=== PATIENT | male | born 1950 | race Caucasian/White ===

== ENCOUNTER 2017-10-27 15:42 | Emergency (ER) | payer OTHER ==
[~2017-10-27] VITALS: Ht 180.3 cm; Wt 103.0 kg
[~2017-10-27 15:42] MED LIST: ACETYLSALICYLIC1 POW; ALD25 PO; ALLOPURINOL100 MG PO; CARVEDILOL3.125 M1 PO; CLINDAMYCIN HC300 MG PO; COR3 PO; COR6 PO; DIAZEPAM10 MG PO; DIGOXIN; ECO81 PO; FLA500 PO; GLU500 PO; HALDOL1 MG; HALOPERIDOL10 MG PO; L20; L40 PO; LAC PO; LASIX40 MG PO; LEVAQUIN750 MG PO; LOT10 PO; METFORMIN HCL500 MG PO; NEU300 PO; POTASSIUM20 MEQ; PULMICORT180 MCG/Ac INH; RISPERDAL1 MG PO; TRAMADOL HCL50 MG PO; VAL10 PO; VAL5; VENTOLIN H0.09 MG/A1 INH; ZES5 PO; ZOC20 PO
[2017-10-27 15:47] VITALS: Ht 180.3 cm; Wt 103.0 kg
[2017-10-27 17:37] VITALS: BP 130/86
== END 2017-10-27 17:37 | disposition home or self-care (01) ==
LOC: ED 15:42
DX: J44.9 Chronic obstructive pulmonary disease, unspecified (principal); J09.X2 Influenza due to identified novel influenza A virus with other respiratory manifestations; J43.9 Emphysema, unspecified
CPT/HCPCS: J7512; J7613; J7644

== ENCOUNTER 2017-10-31 09:26 | Emergency (ER) | payer OTHER ==
[~2017-10-31] VITALS: Ht 180.3 cm; Wt 103.4 kg
[2017-10-31 09:36] VITALS: Ht 180.3 cm; Wt 103.4 kg
[2017-10-31 12:05] VITALS: BP 139/79
== END 2017-10-31 12:05 | disposition home or self-care (01) ==
LOC: ED 09:26
DX: J44.1 Chronic obstructive pulmonary disease with (acute) exacerbation (principal); I11.0 Hypertensive heart disease with heart failure; I50.9 Heart failure, unspecified; E11.9 Type 2 diabetes mellitus without complications
CPT/HCPCS: J7512; J7644

== ENCOUNTER 2017-11-07 07:52 | Inpatient (IN) | payer OTHER ==
[~2017-11-07] VITALS: Ht 180.3 cm; Wt 101.6 kg
[2017-11-07 07:58] VITALS: Ht 180.3 cm; Wt 101.6 kg
[2017-11-07 10:45] LABS: CALCIUM 8.8 mg/dL (8.5-10.1); CARBON DIOXIDE 26.5 mmol/L (21-32); CHLORIDE SERUM 103 mmol/L (98-107); GFR1 > 60 mL/min; GLUCOSE SERUM 311 mg/dL (74-106); POTASSIUM SERUM 4.1 mmol/L (3.5-5.1); SODIUM SERUM 139 mmol/L (136-145)
[2017-11-07 10:50] LABS: ALKALINE PHOSPHATASE 95 U/L (46-116); ALT/SGPT 30 U/L (16-63); AST/SGOT 23 U/L (15-37); BILIRUBIN TOTAL 0.7 mg/dL (0.20-1.00)
[2017-11-07 10:51] LABS: ALBUMIN 3.3 g/dL (3.4-5.0)
[2017-11-07 11:00] LABS: BASOPHIL % 0.9 % (0-2); PLATELET COUNT 255 x10^3mcL (130-400)
[2017-11-07 11:04] LABS: RED CELL DISTRIBUTION WIDTH 14.8 % (11.5-14.5)
[2017-11-07 12:04] LABS: CHOLESTEROL/HDL RATIO 2.5; MAGNESIUM 1.8 mg/dL (1.8-2.4); PHOSPHOROUS 2.7 mg/dL (2.5-4.9)
[2017-11-07 12:06] LABS: UA SPECIFIC GRAVITY >=1.030 (1.005-1.035); microscopic required? YES; urine erythrocyte TRACE (NEGATIVE)
[2017-11-07 12:22] LABS: AMPHETAMINE QUAL UR NONE DETECTED (NEG <=1000)
[2017-11-07 12:24] LABS: FREE T4 1.46 ng/dL (0.76-1.46); T4(THYROXINE) 9.3 ug/dL (4.7-13.3)
[2017-11-07 12:59] VITALS: BP 134/90
[2017-11-07 15:02] VITALS: BP 134/90
[2017-11-07 18:16] VITALS: BP 132/82
[2017-11-07 20:53] VITALS: BP 132/85
[2017-11-07 21:36] VITALS: BP 108/75
[2017-11-08 04:51] VITALS: BP 114/80
[2017-11-08 07:22] LABS: BASOPHIL % 0.3 % (0-2); PLATELET COUNT 231 x10^3mcL (130-400)
[2017-11-08 07:24] LABS: RED CELL DISTRIBUTION WIDTH 14.8 % (11.5-14.5)
[2017-11-08 07:26] LABS: CALCIUM 8.5 mg/dL (8.5-10.1); CARBON DIOXIDE 25.8 mmol/L (21-32); CHLORIDE SERUM 104 mmol/L (98-107); CREATININE SERUM 1.1 mg/dL (0.7-1.3); GFR1 > 60 mL/min; GLUCOSE SERUM 89 mg/dL (74-106); MAGNESIUM 1.8 mg/dL (1.8-2.4); PHOSPHOROUS 3.6 mg/dL (2.5-4.9); POTASSIUM SERUM 3.9 mmol/L (3.5-5.1); SODIUM SERUM 142 mmol/L (136-145)
[2017-11-08 11:22] VITALS: BP 129/83
[2017-11-08 14:25] VITALS: BP 116/70
[2017-11-08 17:33] VITALS: BP 113/75
[2017-11-08 20:52] VITALS: BP 121/77
[2017-11-08 21:25] VITALS: BP 125/73
[2017-11-09 04:39] VITALS: BP 111/72
[2017-11-09 07:58] LABS: BASOPHIL % 0.7 % (0-2); PLATELET COUNT 213 x10^3mcL (130-400); RED CELL DISTRIBUTION WIDTH 14.4 % (11.5-14.5)
[2017-11-09 08:03] LABS: CARBON DIOXIDE 26.9 mmol/L (21-32); CHLORIDE SERUM 102 mmol/L (98-107); CREATININE SERUM 1.2 mg/dL (0.7-1.3); GFR1 > 60 mL/min; GLUCOSE SERUM 148 mg/dL (74-106); MAGNESIUM 1.8 mg/dL (1.8-2.4); PHOSPHOROUS 4.1 mg/dL (2.5-4.9); POTASSIUM SERUM 3.8 mmol/L (3.5-5.1); SODIUM SERUM 137 mmol/L (136-145)
[2017-11-09 09:17] VITALS: BP 113/62
[2017-11-09] MEDS ORDERED: LEVAQUIN750 MG PO (12:13)
[2017-11-09] MEDS ORDERED: LAC PO (12:13)
[2017-11-09] MEDS ORDERED: ZES5 PO (12:14)
[2017-11-09 12:50] VITALS: BP 115/77
[2017-11-09 13:30] VITALS: BP 113/62
== END 2017-11-09 15:48 | disposition home or self-care (01) | DRG 190 ==
LOC: ED 07:52 → DU 11:13
PROVIDERS: Emergency Medicine; Family Medicine
DX: J44.1 Chronic obstructive pulmonary disease with (acute) exacerbation (principal); N17.0 Acute kidney failure with tubular necrosis; J96.20 Acute and chronic respiratory failure, unspecified whether with hypoxia or hypercapnia; I50.43 Acute on chronic combined systolic (congestive) and diastolic (congestive) heart failure; E44.1 Mild protein-calorie malnutrition; I11.0 Hypertensive heart disease with heart failure; E11.65 Type 2 diabetes mellitus with hyperglycemia; E11.51 Type 2 diabetes mellitus with diabetic peripheral angiopathy without gangrene; R80.9 Proteinuria, unspecified; F20.9 Schizophrenia, unspecified; F17.200 Nicotine dependence, unspecified, uncomplicated; Z68.31 Body mass index [BMI] 31.0-31.9, adult; Z79.84 Long term (current) use of oral hypoglycemic drugs; Z95.810 Presence of automatic (implantable) cardiac defibrillator; Z86.718 Personal history of other venous thrombosis and embolism
CPT/HCPCS: 36600; 82962; 83880; 84439; 94150; J1940; J1956; J7030; J7613; J7620; J7626; J7644; Q0092

== ENCOUNTER 2017-12-11 08:32 | Inpatient (IN) | payer OTHER ==
[~2017-12-11] VITALS: Ht 180.3 cm; Wt 93.5 kg
[2017-12-11 08:35] VITALS: Ht 180.3 cm; Wt 93.5 kg
[2017-12-11] MEDS ORDERED: BENAZEPRIL HYDR20 M1 PO (08:59)
[2017-12-11] MEDS ORDERED: CARVEDILOL3.125 M1 PO (08:59)
[2017-12-11 10:25] LABS: CALCIUM 8.6 mg/dL (8.5-10.1); CARBON DIOXIDE 28.9 mmol/L (21-32); CREATININE SERUM 1.3 mg/dL (0.7-1.3); POTASSIUM SERUM 4.6 mmol/L (3.5-5.1)
[2017-12-11 10:29] LABS: BILIRUBIN TOTAL 0.96 mg/dL (0.20-1.00); CHOLESTEROL/HDL RATIO 3.3; TOTAL PROTEIN, SERUM 6.8 g/dL (6.4-8.2)
[2017-12-11 10:33] LABS: ALBUMIN 2.9 g/dL (3.4-5.0)
[2017-12-11 10:41] LABS: T3 TOTAL 0.76 ng/mL
[2017-12-11 11:17] LABS: BASOPHIL % 0.6 % (0-2); PLATELET COUNT 191 x10^3mcL (130-400); RED CELL DISTRIBUTION WIDTH 14.2 % (11.5-14.5)
[2017-12-11 11:21] LABS: FREE T4 1.43 ng/dL (0.76-1.46); T4(THYROXINE) 7.2 ug/dL (4.7-13.3)
[2017-12-11 13:21] VITALS: BP 123/72
[2017-12-11 16:20] LABS: MAGNESIUM 1.5 mg/dL (1.8-2.4); PHOSPHOROUS 3.3 mg/dL (2.5-4.9)
[2017-12-11 18:07] VITALS: BP 127/79
[2017-12-11 21:46] VITALS: BP 129/83
[2017-12-12 03:37] LABS: BASOPHIL % 0.1 % (0-2); PLATELET COUNT 191 x10^3mcL (130-400); RED CELL DISTRIBUTION WIDTH 13.8 % (11.5-14.5)
[2017-12-12 03:58] LABS: CALCIUM 8.2 mg/dL (8.5-10.1); CARBON DIOXIDE 24.5 mmol/L (21-32); CREATININE SERUM 1.3 mg/dL (0.7-1.3); MAGNESIUM 1.4 mg/dL (1.8-2.4); PHOSPHOROUS 2.9 mg/dL (2.5-4.9); POTASSIUM SERUM 4.5 mmol/L (3.5-5.1)
[2017-12-12 05:59] VITALS: BP 111/81
[2017-12-12 09:23] VITALS: BP 118/83
[2017-12-12 11:33] LABS: UA SPECIFIC GRAVITY 1.025 (1.005-1.035); microscopic required? YES; urine erythrocyte NEGATIVE (NEGATIVE)
[2017-12-12 12:11] LABS: AMPHETAMINE QUAL UR NONE DETECTED (NEG <=1000)
[2017-12-12 13:23] VITALS: BP 114/68
[2017-12-12 17:41] VITALS: BP 125/63
[2017-12-12 20:06] VITALS: BP 101/61
[2017-12-13 05:58] VITALS: BP 100/62
[2017-12-13 07:54] LABS: PLATELET COUNT 187 x10^3mcL (130-400); RED CELL DISTRIBUTION WIDTH 14.3 % (11.5-14.5)
[2017-12-13 08:04] LABS: CALCIUM 8.3 mg/dL (8.5-10.1); CARBON DIOXIDE 22.9 mmol/L (21-32); CREATININE SERUM 1.5 mg/dL (0.7-1.3); MAGNESIUM 1.7 mg/dL (1.8-2.4); PHOSPHOROUS 4.1 mg/dL (2.5-4.9); POTASSIUM SERUM 5.3 mmol/L (3.5-5.1)
[2017-12-13 09:02] LABS: BASOPHIL % 0 % (0-2)
[2017-12-13 09:35] VITALS: BP 112/61
[2017-12-13 13:01] VITALS: BP 117/69
[2017-12-13 17:22] VITALS: BP 105/65
[2017-12-13 19:51] VITALS: BP 107/62
[2017-12-13 21:46] VITALS: BP 118/72
[2017-12-14 06:21] VITALS: BP 99/49
[2017-12-14 06:26] LABS: CALCIUM 8.3 mg/dL (8.5-10.1); CARBON DIOXIDE 28.2 mmol/L (21-32); CREATININE SERUM 1.3 mg/dL (0.7-1.3); POTASSIUM SERUM 3.8 mmol/L (3.5-5.1)
[2017-12-14 06:46] LABS: PLATELET COUNT 233 x10^3mcL (130-400); RED CELL DISTRIBUTION WIDTH 14.1 % (11.5-14.5)
[2017-12-14 06:50] LABS: BASOPHIL % 0 % (0-2)
[2017-12-14 09:13] VITALS: BP 109/59
[2017-12-14] MEDS ORDERED: ECO81 PO (11:18)
[2017-12-14] MEDS ORDERED: LIPI10 PO (12:21)
[2017-12-14 12:45] VITALS: BP 110/60
[2017-12-14] MEDS ORDERED: ALD25 PO (13:40)
[2017-12-14] MEDS ORDERED: LEVAQUIN500 M1 PO (13:43)
[2017-12-14] MEDS ORDERED: CLEOCIN HCL300 MG PO (13:44)
[2017-12-14 15:36] VITALS: BP 110/60
== END 2017-12-14 17:15 | disposition home or self-care (01) | DRG 177 ==
LOC: ED 08:32 → DU 11:30
PROVIDERS: Family Medicine; Specialist
DX: J69.0 Pneumonitis due to inhalation of food and vomit (principal); I50.43 Acute on chronic combined systolic (congestive) and diastolic (congestive) heart failure; G93.41 Metabolic encephalopathy; E43 Unspecified severe protein-calorie malnutrition; N17.0 Acute kidney failure with tubular necrosis; J44.1 Chronic obstructive pulmonary disease with (acute) exacerbation; I42.0 Dilated cardiomyopathy; I11.0 Hypertensive heart disease with heart failure; F03.90 Unspecified dementia, unspecified severity, without behavioral disturbance, psychotic disturbance, mood disturbance, and anxiety; I34.0 Nonrheumatic mitral (valve) insufficiency; E11.65 Type 2 diabetes mellitus with hyperglycemia; E11.51 Type 2 diabetes mellitus with diabetic peripheral angiopathy without gangrene; I25.2 Old myocardial infarction; F20.9 Schizophrenia, unspecified; F12.10 Cannabis abuse, uncomplicated; F17.218 Nicotine dependence, cigarettes, with other nicotine-induced disorders; Z68.28 Body mass index [BMI] 28.0-28.9, adult; Z95.0 Presence of cardiac pacemaker; Z86.73 Personal history of transient ischemic attack (TIA), and cerebral infarction without residual deficits; Z86.718 Personal history of other venous thrombosis and embolism; Z79.84 Long term (current) use of oral hypoglycemic drugs
CPT/HCPCS: 36600; 82962; 83880; 84439; 94150; 97110-GP; 97116-GP; 97530-GP; J1644; J1940; J1956; J2543; J2920; J2930; J3475; J3490; J7030; J7620; Q0092

== ENCOUNTER 2018-02-23 08:56 | Inpatient (IN) | payer OTHER ==
[~2018-02-23] VITALS: Ht 177.8 cm; Wt 92.5 kg
[~2018-02-23 08:56] MED LIST changes: +BENAZEPRIL HYDR20 M1 PO; +CLEOCIN HCL300 MG PO; +LEVAQUIN500 M1 PO; +LIPI10 PO
[2018-02-23 09:01] VITALS: Ht 177.8 cm; Wt 92.5 kg
[2018-02-23 10:03] LABS: CALCIUM 8.5 mg/dL (8.5-10.1); CARBON DIOXIDE 28.9 mmol/L (21-32); CHLORIDE SERUM 105 mmol/L (98-107); CREATININE SERUM 1.2 mg/dL (0.7-1.3); GFR1 > 60 mL/min; GLUCOSE SERUM 139 mg/dL (74-106); POTASSIUM SERUM 3.7 mmol/L (3.5-5.1); SODIUM SERUM 142 mmol/L (136-145)
[2018-02-23 10:07] LABS: ALBUMIN 3.6 g/dL (3.4-5.0); ALKALINE PHOSPHATASE 76 U/L (46-116); ALT/SGPT 21 U/L (16-63); AST/SGOT 26 U/L (15-37); BILIRUBIN TOTAL 0.9 mg/dL (0.20-1.00); TOTAL PROTEIN, SERUM 6.9 g/dL (6.4-8.2)
[2018-02-23 10:10] LABS: PLATELET COUNT 241 x10^3mcL (130-400)
[2018-02-23] MEDS ORDERED: HAL5 PO (10:18)
[2018-02-23 10:25] LABS: RED CELL DISTRIBUTION WIDTH 18.4 % (11.5-14.5)
[2018-02-23 11:13] LABS: UA SPECIFIC GRAVITY >=1.030 (1.005-1.035); microscopic required? YES; urine erythrocyte NEGATIVE (NEGATIVE)
[2018-02-23 11:27] LABS: BAND NEUTROPHIL 2 % (0-10); BASOPHIL 0 % (0-2); MONOCYTE 10 % (0-7); SEGMENTED NEUTROPHILS 59 % (37-75); rbc morphology (normal/abnorm) ABNORMAL (NORMAL)
[2018-02-23 11:31] LABS: target cell (codocyte) 1+
[2018-02-23 11:48] LABS: PHOSPHOROUS 2.9 mg/dL (2.5-4.9)
[2018-02-23 11:57] LABS: T3 TOTAL 0.45 ng/mL
[2018-02-23 11:59] LABS: FREE T4 1.11 ng/dL (0.76-1.46); FREE THYROXINE INDEX 2.5 ug/dL (1.4-4.5)
[2018-02-23 12:40] VITALS: BP 123/94
[2018-02-23 13:12] LABS: RED BLOOD CELLS 4.24 M/mm3 (4.52-5.90)
[2018-02-23 13:14] VITALS: BP 123/84
[2018-02-23 13:19] LABS: IRON 80 ug/dL (65-170); TOTAL IRON BINDING CAPACITY 331 ug/dL (250-450)
[2018-02-23 13:49] VITALS: BP 115/77
[2018-02-23 14:47] LABS: AMPHETAMINE QUAL UR NONE DETECTED (NEG <=1000)
[2018-02-23 16:53] VITALS: BP 121/75
[2018-02-23 21:13] VITALS: BP 106/68
[2018-02-24 05:55] VITALS: BP 109/71
[2018-02-24 06:45] LABS: PLATELET COUNT 218 x10^3mcL (130-400)
[2018-02-24 07:11] LABS: CALCIUM 8.1 mg/dL (8.5-10.1); CARBON DIOXIDE 24.5 mmol/L (21-32); CHLORIDE SERUM 105 mmol/L (98-107); CREATININE SERUM 1.1 mg/dL (0.7-1.3); GFR1 > 60 mL/min; GLUCOSE SERUM 94 mg/dL (74-106); HDL CHOLESTEROL 38 mg/dL (40-60); MAGNESIUM 1.9 mg/dL (1.8-2.4); PHOSPHOROUS 3.1 mg/dL (2.5-4.9); POTASSIUM SERUM 3.8 mmol/L (3.5-5.1); SODIUM SERUM 140 mmol/L (136-145); TRIGLYCERIDES 53 mg/dL (<150)
[2018-02-24 07:12] LABS: CHOLESTEROL 112 mg/dL (<200); CHOLESTEROL/HDL RATIO 2.9
[2018-02-24 08:05] VITALS: BP 110/74
[2018-02-24 08:24] LABS: RED CELL DISTRIBUTION WIDTH 18.6 % (11.5-14.5)
[2018-02-24 10:22] LABS: BAND NEUTROPHIL 3 % (0-10); BASOPHIL 0 % (0-2); MONOCYTE 15 % (0-7); SEGMENTED NEUTROPHILS 53 % (37-75); rbc morphology (normal/abnorm) ABNORMAL (NORMAL)
[2018-02-24 10:23] LABS: burr cell (echinocyte) 1+; schistocyte (helmet cell) 1+; target cell (codocyte) 1+
[2018-02-24 13:05] VITALS: BP 91/60
[2018-02-24 17:41] VITALS: BP 104/64
[2018-02-24 21:09] VITALS: BP 91/66
[2018-02-25 05:02] VITALS: BP 103/54
[2018-02-25 05:59] LABS: BASOPHIL % 0.6 % (0-2); PLATELET COUNT 230 x10^3mcL (130-400)
[2018-02-25 06:30] LABS: CALCIUM 8.3 mg/dL (8.5-10.1); CARBON DIOXIDE 24.8 mmol/L (21-32); CREATININE SERUM 1.6 mg/dL (0.7-1.3); MAGNESIUM 1.7 mg/dL (1.8-2.4); PHOSPHOROUS 3.5 mg/dL (2.5-4.9); POTASSIUM SERUM 3.6 mmol/L (3.5-5.1)
[2018-02-25 06:48] LABS: RED CELL DISTRIBUTION WIDTH 17.6 % (11.5-14.5)
[2018-02-25 08:19] VITALS: BP 105/61
[2018-02-25] MEDS ORDERED: ATORVASTATIN CA40 M1 PO (09:14)
[2018-02-25] MEDS ORDERED: ALD25 PO (09:15)
[2018-02-25 11:07] VITALS: BP 105/61
== END 2018-02-25 14:54 | disposition home health service (06) | DRG 70 ==
LOC: ED 08:56 → DU 10:39 → MU 10:39 → DU 11:27 → MU 02-24 20:31
PROVIDERS: Emergency Medicine; Family Medicine Sports Medicine
DX: G93.40 Encephalopathy, unspecified (principal); N17.0 Acute kidney failure with tubular necrosis; I50.43 Acute on chronic combined systolic (congestive) and diastolic (congestive) heart failure; J69.0 Pneumonitis due to inhalation of food and vomit; J90 Pleural effusion, not elsewhere classified; I11.0 Hypertensive heart disease with heart failure; E11.51 Type 2 diabetes mellitus with diabetic peripheral angiopathy without gangrene; E11.65 Type 2 diabetes mellitus with hyperglycemia; R62.7 Adult failure to thrive; K57.90 Diverticulosis of intestine, part unspecified, without perforation or abscess without bleeding; J43.9 Emphysema, unspecified; E83.51 Hypocalcemia; E83.42 Hypomagnesemia; I34.0 Nonrheumatic mitral (valve) insufficiency; I36.1 Nonrheumatic tricuspid (valve) insufficiency; N28.1 Cyst of kidney, acquired; D70.9 Neutropenia, unspecified; F20.9 Schizophrenia, unspecified; I25.5 Ischemic cardiomyopathy; Z79.4 Long term (current) use of insulin; Z68.28 Body mass index [BMI] 28.0-28.9, adult; Z87.891 Personal history of nicotine dependence; Z95.810 Presence of automatic (implantable) cardiac defibrillator
CPT/HCPCS: 36600; 82962; 83880; 84439; 97110-GP; 97116-GP; 97530-GP; J1885; J1940; J1956; J3010; J3475; J3490; J7030; J7620; J7633; Q0092

== ENCOUNTER 2018-05-13 17:08 | Inpatient (IN) | payer OTHER ==
[~2018-05-13] VITALS: Ht 180.3 cm; Wt 74.4 kg
[~2018-05-13 17:08] MED LIST changes: +ALDACTONE25 MG PO; +ASPIR 8181 MG PO; +ATORVASTATIN CA40 M1 PO; +HAL5 PO
[2018-05-13 18:13] LABS: BASOPHIL % 0.4 % (0-2)
[2018-05-13 18:17] LABS: PLATELET COUNT 215 x10^3mcL (130-400); RED CELL DISTRIBUTION WIDTH 22.2 % (11.5-14.5)
[2018-05-13 18:18] LABS: CALCIUM 9.1 mg/dL (8.5-10.1); CARBON DIOXIDE 29.3 mmol/L (21-32); CREATININE SERUM 1.7 mg/dL (0.7-1.3); POTASSIUM SERUM 3.9 mmol/L (3.5-5.1)
[2018-05-13 18:22] LABS: BILIRUBIN TOTAL 2.84 mg/dL (0.20-1.00); TOTAL PROTEIN, SERUM 7.3 g/dL (6.4-8.2)
[2018-05-13 18:23] LABS: ALBUMIN 3.3 g/dL (3.4-5.0)
[2018-05-13 18:34] LABS: rbc morphology (normal/abnorm) ABNORMAL (NORMAL)
[2018-05-13 19:23] LABS: UA SPECIFIC GRAVITY 1.025 (1.005-1.035); microscopic required? YES; urine erythrocyte NEGATIVE (NEGATIVE)
[2018-05-13 22:01] VITALS: BP 109/64
[2018-05-14 05:39] VITALS: BP 112/72
[2018-05-14 07:12] LABS: BASOPHIL % 0.1 % (0-2); PLATELET COUNT 185 x10^3mcL (130-400)
[2018-05-14 07:15] LABS: RED CELL DISTRIBUTION WIDTH 21.6 % (11.5-14.5)
[2018-05-14 07:24] LABS: CARBON DIOXIDE 27.8 mmol/L (21-32); CREATININE SERUM 1.3 mg/dL (0.7-1.3); POTASSIUM SERUM 3.8 mmol/L (3.5-5.1)
[2018-05-14 08:46] VITALS: BP 103/69
[2018-05-14 17:01] VITALS: BP 106/71
[2018-05-14 20:37] VITALS: BP 112/67
[2018-05-15 05:43] VITALS: BP 131/74
[2018-05-15 07:49] LABS: BASOPHIL % 0.1 % (0-2); PLATELET COUNT 179 x10^3mcL (130-400)
[2018-05-15 07:54] LABS: RED CELL DISTRIBUTION WIDTH 21.6 % (11.5-14.5)
[2018-05-15 08:01] LABS: rbc morphology (normal/abnorm) ABNORMAL (NORMAL)
[2018-05-15 08:38] LABS: ALKALINE PHOSPHATASE 85 U/L (46-116); ALT/SGPT 12 U/L (16-63); AST/SGOT 38 U/L (15-37); BILIRUBIN TOTAL 2.17 mg/dL (0.20-1.00); CALCIUM 8.1 mg/dL (8.5-10.1); CARBON DIOXIDE 27.5 mmol/L (21-32); CHLORIDE SERUM 105 mmol/L (98-107); CREATININE SERUM 0.9 mg/dL (0.7-1.3); GFR1 > 60 mL/min; GLUCOSE SERUM 110 mg/dL (74-106); MAGNESIUM 1.8 mg/dL (1.8-2.4); POTASSIUM SERUM 3.8 mmol/L (3.5-5.1); SODIUM SERUM 142 mmol/L (136-145)
[2018-05-15 08:41] LABS: ALBUMIN 2.5 g/dL (3.4-5.0); TOTAL PROTEIN, SERUM 5.8 g/dL (6.4-8.2)
[2018-05-15 09:56] VITALS: BP 110/71
[2018-05-15 13:39] VITALS: BP 115/61
[2018-05-15 17:56] VITALS: BP 114/67
[2018-05-15 21:28] VITALS: BP 114/53
[2018-05-16 05:11] VITALS: BP 98/57
[2018-05-16 08:47] VITALS: BP 122/70
[2018-05-16 13:07] VITALS: BP 100/56
[2018-05-16 17:04] VITALS: BP 107/67
[2018-05-16 21:37] VITALS: BP 116/78
[2018-05-17 05:51] VITALS: BP 118/77
[2018-05-17 07:41] LABS: CALCIUM 7.8 mg/dL (8.5-10.1); CARBON DIOXIDE 28.6 mmol/L (21-32); CHLORIDE SERUM 107 mmol/L (98-107); CREATININE SERUM 0.7 mg/dL (0.7-1.3); GFR1 > 60 mL/min; GLUCOSE SERUM 126 mg/dL (74-106); MAGNESIUM 1.8 mg/dL (1.8-2.4); POTASSIUM SERUM 3.4 mmol/L (3.5-5.1); SODIUM SERUM 142 mmol/L (136-145)
[2018-05-17 08:35] LABS: BASOPHIL % 0.3 % (0-2); PLATELET COUNT 280 x10^3mcL (130-400)
[2018-05-17 08:37] LABS: RED CELL DISTRIBUTION WIDTH 23.6 % (11.5-14.5)
[2018-05-17 08:38] LABS: rbc morphology (normal/abnorm) ABNORMAL (NORMAL)
[2018-05-17] MEDS ORDERED: FUROSEMIDE20 MG PO (09:55)
[2018-05-17 09:59] VITALS: BP 128/66
[2018-05-17] MEDS ORDERED: FUROSEMIDE40 MG PO (12:14)
[2018-05-17 17:20] VITALS: Ht 180.3 cm; Wt 74.4 kg
[2018-05-17 21:47] VITALS: BP 109/73
[2018-05-18 05:18] VITALS: BP 112/76
[2018-05-18 08:18] VITALS: BP 119/52
[2018-05-18 08:23] VITALS: BP 103/69
[2018-05-18 14:04] VITALS: BP 126/78
[2018-05-18 17:02] VITALS: BP 135/80
[2018-05-18 21:05] VITALS: BP 116/78
[2018-05-19 05:29] VITALS: BP 128/86
[2018-05-19 08:10] VITALS: BP 132/78
[2018-05-19 08:14] LABS: BASOPHIL % 0.2 % (0-2); PLATELET COUNT 202 x10^3mcL (130-400)
[2018-05-19 08:19] LABS: CALCIUM 8.5 mg/dL (8.5-10.1); CARBON DIOXIDE 23.7 mmol/L (21-32); CHLORIDE SERUM 106 mmol/L (98-107); CREATININE SERUM 0.6 mg/dL (0.7-1.3); GFR1 > 60 mL/min; GLUCOSE SERUM 115 mg/dL (74-106); PHOSPHOROUS 2.8 mg/dL (2.5-4.9); SODIUM SERUM 142 mmol/L (136-145)
[2018-05-19 08:23] LABS: RED CELL DISTRIBUTION WIDTH 21.2 % (11.5-14.5)
[2018-05-19 08:25] LABS: rbc morphology (normal/abnorm) ABNORMAL (NORMAL)
[2018-05-19 12:44] VITALS: BP 118/70
[2018-05-19 17:10] VITALS: BP 104/55
[2018-05-19 20:36] VITALS: BP 105/62
[2018-05-20 05:13] VITALS: BP 132/88
[2018-05-20 10:05] VITALS: BP 112/60
[2018-05-20 13:00] VITALS: BP 119/73
[2018-05-20 16:38] VITALS: BP 116/67
[2018-05-20 21:40] VITALS: BP 127/76
[2018-05-21 06:21] VITALS: BP 116/75
[2018-05-21 06:54] LABS: ALKALINE PHOSPHATASE 84 U/L (46-116); ALT/SGPT 16 U/L (16-63); AST/SGOT 29 U/L (15-37); BILIRUBIN TOTAL 2.54 mg/dL (0.20-1.00); CALCIUM 8.3 mg/dL (8.5-10.1); CARBON DIOXIDE 28.9 mmol/L (21-32); CHLORIDE SERUM 108 mmol/L (98-107); CREATININE SERUM 0.7 mg/dL (0.7-1.3); GFR1 > 60 mL/min; GLUCOSE SERUM 107 mg/dL (74-106); MAGNESIUM 1.9 mg/dL (1.8-2.4); POTASSIUM SERUM 4.4 mmol/L (3.5-5.1); SODIUM SERUM 144 mmol/L (136-145); TOTAL PROTEIN, SERUM 6.4 g/dL (6.4-8.2)
[2018-05-21 07:09] LABS: ALBUMIN 2.8 g/dL (3.4-5.0)
[2018-05-21 07:23] LABS: BASOPHIL % 0.9 % (0-2); PLATELET COUNT 183 x10^3mcL (130-400)
[2018-05-21 07:26] LABS: RED CELL DISTRIBUTION WIDTH 21.1 % (11.5-14.5)
[2018-05-21 09:29] LABS: schistocyte (helmet cell) 1+; tear drop cell (dacryocyte) 1+
[2018-05-21 09:30] VITALS: BP 112/70
[2018-05-21 09:30] LABS: rbc morphology (normal/abnorm) ABNORMAL (NORMAL); target cell (codocyte) 1+
[2018-05-21 10:50] VITALS: BP 121/74
[2018-05-21 13:26] VITALS: BP 114/66
[2018-05-21 18:36] VITALS: BP 121/53
[2018-05-21 21:04] VITALS: BP 98/58
[2018-05-22 05:50] VITALS: BP 118/70
[2018-05-22 06:51] LABS: BASOPHIL % 0.3 % (0-2); PLATELET COUNT 194 x10^3mcL (130-400)
[2018-05-22 06:56] LABS: RED CELL DISTRIBUTION WIDTH 21.1 % (11.5-14.5)
[2018-05-22 06:57] LABS: rbc morphology (normal/abnorm) ABNORMAL (NORMAL)
[2018-05-22 07:20] LABS: ALKALINE PHOSPHATASE 73 U/L (46-116); ALT/SGPT 8 U/L (16-63); AST/SGOT 23 U/L (15-37); BILIRUBIN TOTAL 2.2 mg/dL (0.20-1.00); CALCIUM 7.8 mg/dL (8.5-10.1); CARBON DIOXIDE 26.4 mmol/L (21-32); CHLORIDE SERUM 108 mmol/L (98-107); CREATININE SERUM 0.6 mg/dL (0.7-1.3); GFR1 > 60 mL/min; GLUCOSE SERUM 83 mg/dL (74-106); MAGNESIUM 1.6 mg/dL (1.8-2.4); POTASSIUM SERUM 3.3 mmol/L (3.5-5.1); SODIUM SERUM 141 mmol/L (136-145)
[2018-05-22 07:23] LABS: ALBUMIN 2.2 g/dL (3.4-5.0); TOTAL PROTEIN, SERUM 5.8 g/dL (6.4-8.2)
[2018-05-22 09:28] VITALS: BP 110/69
[2018-05-22 13:49] VITALS: BP 113/66
[2018-05-22 14:56] VITALS: BP 113/66
== END 2018-05-22 16:50 | DRG 884 ==
LOC: ED 17:08 → DU 20:56 → IC 05-18 12:10 → DU 05-18 13:55 → MU 05-22 12:25
PROVIDERS: Emergency Medicine; Internal Medicine Gastroenterology; Internal Medicine Pulmonary Disease
PROC: 0DJ08ZZ Inspection of Upper Intestinal Tract, Via Natural or Artificial Opening Endoscopic (ICD-10-PCS; principal; 2018-05-18 11:15)
PROC: 0DH68UZ Insertion of Feeding Device into Stomach, Via Natural or Artificial Opening Endoscopic (ICD-10-PCS; 2018-05-21)
DX: F03.90 Unspecified dementia, unspecified severity, without behavioral disturbance, psychotic disturbance, mood disturbance, and anxiety (principal); N17.9 Acute kidney failure, unspecified; I50.22 Chronic systolic (congestive) heart failure; E44.0 Moderate protein-calorie malnutrition; E87.0 Hyperosmolality and hypernatremia; R13.10 Dysphagia, unspecified; E86.0 Dehydration; R62.7 Adult failure to thrive; I11.0 Hypertensive heart disease with heart failure; E11.65 Type 2 diabetes mellitus with hyperglycemia; I25.10 Atherosclerotic heart disease of native coronary artery without angina pectoris; J44.9 Chronic obstructive pulmonary disease, unspecified; Z68.22 Body mass index [BMI] 22.0-22.9, adult; Z86.73 Personal history of transient ischemic attack (TIA), and cerebral infarction without residual deficits; Z95.810 Presence of automatic (implantable) cardiac defibrillator; Z79.82 Long term (current) use of aspirin; Z79.84 Long term (current) use of oral hypoglycemic drugs
CPT/HCPCS: 43235; 82962; 83880; 92526-GN; 92610-GN; 97110-GP; 97116-GP; 97530-GP; 97535-GP; J0690; J0696; J1200; J1610; J2250; J2310; J2765; J3010; J3490; J7070; Q0092

== ENCOUNTER 2018-06-18 15:36 | Inpatient (IN) | payer OTHER ==
[~2018-06-18] VITALS: Ht 180.3 cm; Wt 65.5 kg
[~2018-06-18 15:36] MED LIST changes: +FUROSEMIDE20 MG PO; +FUROSEMIDE40 MG PO
[2018-06-18 17:01] LABS: UA SPECIFIC GRAVITY >=1.030 (1.005-1.035); microscopic required? YES; urine erythrocyte NEGATIVE (NEGATIVE)
[2018-06-18 17:02] LABS: BASOPHIL % 0.4 % (0-2); PLATELET COUNT 154 x10^3mcL (130-400)
[2018-06-18 17:05] LABS: RED CELL DISTRIBUTION WIDTH 24.4 % (11.5-14.5)
[2018-06-18 17:10] LABS: CALCIUM 9.1 mg/dL (8.5-10.1); CARBON DIOXIDE 22.4 mmol/L (21-32); CREATININE SERUM 2.1 mg/dL (0.7-1.3)
[2018-06-18 17:18] LABS: ALBUMIN 3.4 g/dL (3.4-5.0); BILIRUBIN TOTAL 3.27 mg/dL (0.20-1.00); TOTAL PROTEIN, SERUM 7.2 g/dL (6.4-8.2)
[2018-06-18 20:19] VITALS: BP 116/79
[2018-06-18 20:29] VITALS: Ht 180.3 cm; Wt 65.5 kg
[2018-06-18 21:28] VITALS: BP 116/79
[2018-06-19 05:35] VITALS: BP 114/76; BP 114/776
[2018-06-19 06:59] LABS: CALCIUM 8.7 mg/dL (8.5-10.1); CARBON DIOXIDE 19.5 mmol/L (21-32); CREATININE SERUM 1.9 mg/dL (0.7-1.3); POTASSIUM SERUM 5.1 mmol/L (3.5-5.1)
[2018-06-19 07:37] LABS: PLATELET COUNT 130 x10^3mcL (130-400)
[2018-06-19 07:41] LABS: BASOPHIL % 0 % (0-2); RED CELL DISTRIBUTION WIDTH 24.9 % (11.5-14.5)
[2018-06-19 08:28] VITALS: BP 124/77
[2018-06-19 10:02] VITALS: BP 108/82
[2018-06-19 11:24] LABS: rbc morphology (normal/abnorm) ABNORMAL (NORMAL)
[2018-06-19 11:27] LABS: schistocyte (helmet cell) 2+
[2018-06-19 11:28] LABS: burr cell (echinocyte) 3+
[2018-06-19 12:58] VITALS: BP 110/77
[2018-06-19 17:26] VITALS: BP 110/74
[2018-06-19 20:52] VITALS: BP 100/65
[2018-06-20 05:21] VITALS: BP 116/78
[2018-06-20 06:59] LABS: CALCIUM 8.3 mg/dL (8.5-10.1); CHLORIDE SERUM 108 mmol/L (98-107); CREATININE SERUM 1.2 mg/dL (0.7-1.3); GFR1 > 60 mL/min; GLUCOSE SERUM 125 mg/dL (74-106); POTASSIUM SERUM 3.9 mmol/L (3.5-5.1); SODIUM SERUM 142 mmol/L (136-145)
[2018-06-20 09:26] VITALS: BP 124/67
[2018-06-20 13:54] VITALS: BP 117/72
[2018-06-20 17:40] VITALS: BP 121/69
[2018-06-20 20:26] VITALS: BP 94/55
[2018-06-21 05:48] VITALS: BP 109/67
[2018-06-21 06:51] LABS: ALKALINE PHOSPHATASE 83 U/L (46-116); ALT/SGPT 54 U/L (16-63); AST/SGOT 46 U/L (15-37); BILIRUBIN TOTAL 2.29 mg/dL (0.20-1.00); CALCIUM 7.8 mg/dL (8.5-10.1); CARBON DIOXIDE 26.5 mmol/L (21-32); CHLORIDE SERUM 108 mmol/L (98-107); GFR1 > 60 mL/min; GLUCOSE SERUM 108 mg/dL (74-106); MAGNESIUM 1.8 mg/dL (1.8-2.4); PHOSPHOROUS 2.7 mg/dL (2.5-4.9); POTASSIUM SERUM 3.7 mmol/L (3.5-5.1); SODIUM SERUM 141 mmol/L (136-145)
[2018-06-21 06:59] LABS: ALBUMIN 2.4 g/dL (3.4-5.0); TOTAL PROTEIN, SERUM 5.3 g/dL (6.4-8.2)
[2018-06-21 08:13] VITALS: BP 96/56
[2018-06-21 11:54] VITALS: BP 106/67
[2018-06-21 13:41] VITALS: BP 106/67
[2018-06-21 16:44] VITALS: BP 100/61
== END 2018-06-21 20:40 | DRG 291 ==
LOC: ED 15:36 → DU 18:05
PROVIDERS: Emergency Medicine; Internal Medicine Pulmonary Disease
DX: I11.0 Hypertensive heart disease with heart failure (principal); J96.01 Acute respiratory failure with hypoxia; G93.41 Metabolic encephalopathy; N17.9 Acute kidney failure, unspecified; I50.21 Acute systolic (congestive) heart failure; I25.10 Atherosclerotic heart disease of native coronary artery without angina pectoris; E11.9 Type 2 diabetes mellitus without complications; E87.5 Hyperkalemia; E78.5 Hyperlipidemia, unspecified; F03.90 Unspecified dementia, unspecified severity, without behavioral disturbance, psychotic disturbance, mood disturbance, and anxiety; Z93.1 Gastrostomy status; Z79.82 Long term (current) use of aspirin; Z95.810 Presence of automatic (implantable) cardiac defibrillator; Z79.84 Long term (current) use of oral hypoglycemic drugs; Z86.73 Personal history of transient ischemic attack (TIA), and cerebral infarction without residual deficits
CPT/HCPCS: 83880; J1940; J7620; Q0092

== ENCOUNTER 2018-07-18 14:40 | Emergency (ER) | payer OTHER ==
[~2018-07-18] VITALS: Ht 180.3 cm; Wt 93.0 kg
[2018-07-18 14:55] VITALS: Ht 180.3 cm; Wt 93.0 kg
== END 2018-07-18 16:42 | disposition expired ==
LOC: ED 14:40
DX: I46.9 Cardiac arrest, cause unspecified (principal)